=== PATIENT | male | born 1950 | race Caucasian/White ===

== ENCOUNTER 2022-01-27 09:29 | Outpatient (CLI) | payer MEDICARE, OTHER, SELFPAY ==
[2022-01-27 15:03] LABS: Albumin* 4.6 g/dL (3.3-5.0)
[2022-01-27 15:06] LABS: Alkaline Phosphatase* 73 U/L (40-150); Aspartate Amino Transferase* 26 U/L (12-35); Bilirubin Direct* 0.1 mg/dL (0.0-0.5); Bilirubin Total* 0.6 mg/dL (0.1-1.5); Total Protein* 6.9 g/dL (6.0-8.3)
[2022-01-27 15:07] LABS: Alanine Aminotransferase* 19 U/L (4-50); Lipase* 148 U/L (23-300)
== END 2022-01-27 09:30 | disposition home or self-care (01) ==
PROVIDERS: PCP Family Medicine; Visit Provider Emergency Medicine
DX: R10.9 Unspecified abdominal pain (principal); R11.0 Nausea
CPT/HCPCS: 80076; 83690; 87338

== ENCOUNTER 2022-01-28 10:00 | Outpatient (CLI) | payer MEDICARE, OTHER, SELFPAY ==
[2022-01-28 13:17] LABS: H pylori Ag Stool* Negative (Negative)
== END 2022-01-28 10:01 | disposition home or self-care (01) ==
PROVIDERS: PCP Family Medicine; Visit Provider Emergency Medicine
DX: R10.9 Unspecified abdominal pain (principal); R11.0 Nausea
CPT/HCPCS: 87338

== ENCOUNTER 2022-01-28 11:06 | Outpatient (CLI) | payer MEDICARE, OTHER, SELFPAY | END 2022-01-28 11:07 | disposition home or self-care (01) | PROVIDERS: PCP Emergency Medicine; Visit Provider Emergency Medicine | DX: R19.7 Diarrhea, unspecified (principal) | CPT/HCPCS: 87338 ==

== ENCOUNTER 2022-10-20 10:18 | Emergency (ER) | payer MEDICARE, OTHER, SELFPAY ==
[2022-10-20] VITALS (24 sets, daily range): BP systolic 94–130; BP diastolic 57–86; PULSE 69–85; RESP 16; TEMP 36.3; O2SAT 91–97; BMI 26.6
--- NOTE | 2022-10-20 10:44 | CRLHL7_ITS ---
For Patients: As a result of the 21st Century Cures Act, medical imaging exams and procedure reports are released immediately into your electronic medical record. You may view this report before your referring provider. If you have questions, please contact your health care provider. INDICATION: ABD PAIN, DIARRHEA,VOMITING TECHNIQUE: CT abdomen and pelvis with 89 cc Omnipaque 370 IV contrast. COMPARISON: August 20, 2022. FINDINGS: The liver is normal in size, shape and attenuation. Gallbladder and biliary tree are normal. The spleen, adrenal glands and pancreas are within normal limits. Redemonstrated 1.2 cm calcified splenic artery aneurysm. Multiple bilateral renal cysts and too small to characterize hypodense bilateral renal lesions. Punctate nonobstructing calculi in the lower poles of the bilateral kidneys. No hydronephrosis. Unremarkable appearing bladder. Moderate size hiatal hernia with redemonstrated but slightly worsened moderate circumferential wall thickening of the distal esophagus. No evidence of bowel obstruction. The stomach is decompressed. Extensive colonic diverticulosis without evidence of diverticulitis. Enlarged heterogenous julienne hepatis lymph node, measuring 2.9 x 2.5 cm. No significant free fluid and no free air. Mild prostatomegaly. Subpleural reticulation along the bilateral lung bases, likely reflective of fibrotic changes and similar to prior. IMPRESSION: 1. Enlarged heterogenous julienne hepatis lymph node, measuring 2.9 x 2.5 cm. Finding highly concerning for metastatic disease until proven otherwise, with unknown primary. Recommend correlation with clinical history. PET-CT may be of benefit to further evaluate. Tissue sampling could be considered if clinically feasible. 2. Moderate size hiatal hernia with redemonstrated but slightly worsened moderate circumferential wall thickening of the distal esophagus. Differential includes chronic reflux esophagitis although given prominent julienne hepatis lymph node esophageal lesion cannot be excluded. Consider endoscopy and tissue sampling if not previously performed. 3. Colonic diverticulosis without evidence of acute diverticulitis. 4. Punctate bilateral nonobstructing renal calculi. 5. Subpleural fibrotic changes in the lung bases. Findings discussed with Dr. Young German at 2 a.m. Please note that all CT scans at this facility use dose modulation, iterative reconstruction, and/or weight-based dosing when appropriate to reduce radiation dose to as low as reasonably achievable. Dictated by Lester Hawkins MD @ 10/20/2022 2:02:22 PM (Electronically Signed)
--- NOTE | 2022-10-20 10:47 | ED_ITS ---
HPI - GI Bleed General Chief complaint: GI Bleed Stated complaint: Vomiting Time Seen by Provider: 10/20/22 10:22 History of Present Illness HPI Narrative: Patient is a 72-year-old gentleman with complex gastrointestinal history including bilious vomiting and reflux. He has had multiple EGDs and has had care both [facility] and [facility]. Patient was in his usual state of health when he went to bed last night but had night of forceful vomiting. He is now throwing up but dark brown material consistent with his bili is vomiting. He has had some occasional loose stools as well but no blood in his stool no overt blood in his vomiting. Patient takes Protonix 40 mg twice daily. He does take aspirin 81 mg daily for history of coronary artery disease. He is not on any blood thinners. I states that he feels quite fatigued now but otherwise is back to his baseline. Related Data Home Medications Medication Instructions Recorded Confirmed aspirin 81 mg tablet,delayed 81 mg PO QDAY 01/27/22 10/20/22 release ([place] Low Dose Aspirin) atorvastatin 40 mg tablet 40 mg PO QDAY 01/27/22 10/20/22 fluoxetine 10 mg capsule 10 mg PO QDAY 01/27/22 10/20/22 metoprolol tartrate 25 mg tablet 25 mg PO QDAY 01/27/22 10/20/22 omeprazole 20 mg capsule,delayed 20 mg PO QDAY 01/27/22 01/27/22 release tamsulosin 0.4 mg capsule 0.4 mg PO QDAY 01/27/22 10/20/22 pantoprazole 40 mg tablet,delayed 40 mg PO BID 10/20/22 10/20/22 release Previous Rx's Medication Instructions Recorded ondansetron 4 mg disintegrating 4 mg PO Q8H PRN nausea and 10/20/22 tablet vomiting 4 days #10 tabs Allergies Allergy/AdvReac Type Severity Reaction Status Date / Time No Known Drug Allergies Allergy Verified 10/20/22 10:25 Review of Systems Status of ROS: Reports: 10 or more systems reviewed and unremarkable except as noted in History and below [facility] Medical History Elevated transaminase level ?R74.01 - Elevation of levels of liver transaminase levels (ICD-10) COVID-19 ?U07.1 - COVID-19 (ICD-10) Pulmonary emboli ?I26.99 - Other pulmonary embolism without acute cor pulmonale (ICD-10) CAD (coronary artery disease) ?I25.10 - Atherosclerotic heart disease of [place] coronary artery without angina pectoris (ICD-10) Abdominal pain ?R10.9 - Unspecified abdominal pain (ICD-10) Nausea ?R11.0 - Nausea (ICD-10) Social History Smoking Status: Former smoker Do you use any of these nicotine containing products: None Second hand tobacco smoke exposure: No How often do you have a drink containing alcohol: never How often do you have six or more drinks on one occasion: Never AUDIT-C Alcohol total score: 0 Non-prescribed substance use: denies use service: Yes Exam Narrative: Exam Narrative: EXAM GENERAL: Patient appears comfortable and well. EYES: No scleral icterus. THYROID: no thyroid nodules or thyromegaly. LYMPH: No supraclavicular or cervical lymphadenopathy. SKIN: Visible skin seen during exam normal or with benign process only. EXT: No dependent lower extremity pedal edema. HEART: Regular rate and rhythm with no murmurs, rubs, or gallops. LUNGS: Clear to auscultation bilaterally with no crackles or wheezes. ABD: Soft, non tender, non distended. PSYCH: Good eye contact, speech is not pressured. Const: Vital Signs, click to edit/add: Vital Signs - 24 hr 10/20/22 10:26 10/20/22 10:34 10/20/22 10:37 Temperature 97.3 F L Pulse Rate 79 77 Pulse Rate [Pulse Oximeter] 79 Respiratory Rate 16 Blood Pressure 107/77 Blood Pressure [Ri ght Upper Arm] 107/77 Pulse Oximetry 95 95 96 Oxygen Delivery Me thod Room Air 10/20/22 10:42 10/20/22 10:45 10/20/22 11:00 Temperature Pulse Rate 79 80 85 Pulse Rate [Pulse Oximeter] Respiratory Rate Blood Pressure 99/72 Blood Pressure [Ri ght Upper Arm] Pulse Oximetry 97 95 91 Oxygen Delivery Me thod 10/20/22 11:02 10/20/22 11:15 10/20/22 11:21 Temperature Pulse Rate 77 75 74 Pulse Rate [Pulse Oximeter] Respiratory Rate Blood Pressure 112/86 127/69 Blood Pressure [Ri ght Upper Arm] Pulse Oximetry 97 94 93 Oxygen Delivery Me thod 10/20/22 11:30 10/20/22 11:42 10/20/22 11:45 Temperature Pulse Rate 72 71 70 Pulse Rate [Pulse Oximeter] Respiratory Rate Blood Pressure 124/67 Blood Pressure [Ri ght Upper Arm] Pulse Oximetry 93 94 94 Oxygen Delivery Me thod 10/20/22 12:00 10/20/22 12:02 10/20/22 12:26 Temperature Pulse Rate 83 69 81 Pulse Rate [Pulse Oximeter] Respiratory Rate Blood Pressure 119/74 Blood Pressure [Ri ght Upper Arm] Pulse Oximetry 92 95 96 Oxygen Delivery Me thod 10/20/22 12:30 10/20/22 12:42 10/20/22 12:45 Temperature Pulse Rate 79 77 76 Pulse Rate [Pulse Oximeter] Respiratory Rate Blood Pressure 112/67 Blood Pressure [Ri ght Upper Arm] Pulse Oximetry 97 93 93 Oxygen Delivery Me thod 10/20/22 13:00 10/20/22 13:02 10/20/22 13:15 Temperature Pulse Rate 73 72 71 Pulse Rate [Pulse Oximeter] Respiratory Rate Blood Pressure 106/63 Blood Pressure [Ri ght Upper Arm] Pulse Oximetry 94 94 95 Oxygen Delivery Me thod 10/20/22 13:22 10/20/22 13:30 10/20/22 13:42 Temperature Pulse Rate 69 71 74 Pulse Rate [Pulse Oximeter] Respiratory Rate Blood Pressure 94/57 L 130/69 Blood Pressure [Ri ght Upper Arm] Pulse Oximetry 92 95 95 Oxygen Delivery Me thod Course Course Hospital Course: CBC comprehensive metabolic panel PT PTT INR stool for occult blood ordered. 1 L saline bolus and 4 mg of IV Zofran given. CT of the abdomen pelvis ordered. Vital Signs Vital signs: Initial Vital Signs Temperature 97.3 F L 10/20/22 10:26 Temperature Source Temporal Artery Scan 10/20/22 10:26 Pulse Rate 79 10/20/22 10:26 Pulse Rhythm Regular 10/20/22 10:26 Pulse Strength 3+ Normal 10/20/22 10:26 Respiratory Rate 16 10/20/22 10:26 Blood Pressure 107/77 10/20/22 10:26 Blood Pressure Mean 87 10/20/22 10:26 Blood Pressure Position Sitting 10/20/22 10:26 Pulse Oximetry 95 10/20/22 10:26 Oxygen Delivery Method Room Air 10/20/22 10:26 Vital Signs Temperature 97.3 F L 10/20/22 10:26 Pulse Rate 79 10/20/22 10:26 Respiratory Rate 16 10/20/22 10:26 Blood Pressure 107/77 10/20/22 10:26 Pulse Oximetry 95 10/20/22 10:26 Oxygen Delivery Method Room Air 10/20/22 10:26 Temperature 97.3 F L 10/20/22 10:26 Pulse Rate 74 10/20/22 13:42 Respiratory Rate 16 10/20/22 10:26 Blood Pressure 130/69 10/20/22 13:42 Pulse Oximetry 95 10/20/22 13:42 Oxygen Delivery Method Room Air 10/20/22 10:26 MDM - GI Bleed MDM Narrative Medical decision making narrative: Patient is a 72-year-old gentleman with a somewhat complex gastrointestinal history who comes in after vomiting what was either blood or bile. He had no further nausea vomiting after arrival. He was treated with normal saline as well as IV Zofran. Hemoglobin is reassuring. He does have a trace amount of blood in his stool. Coags are reasonable as are his electrolytes although he does have elevation in his BUN in relation to his creatinine. CT of the abdomen pelvis shows what appears to be a pathological lymph node near the liver. I did discuss this with the radiologist. The case was reviewed with patient to remain stable during his time in the emergency room. He would like to go home with oral Zofran and follow up with his primary physician. I did recommend either a PET scan or biopsy of his lymph node and then a search to make sure that there is not an underlying malignancy. Differential Diagnosis Differential diagnosis: Likely hemorrhoids, infectious diarrhea, esophageal varices, gastritis, Bridget-Middleton syndrome, Upper gastrointestinal hemorrhage, Lower gastrointestinal hemorrhage, hematochezia, melena and anal fissure Lab Data Labs: Lab Results 10/20/22 10/20/22 Range/Units 10:50 11:00 WBC 13.36 H (4.50-11.00) K/uL RBC 4.51 (4.30-5.90) m/uL Hgb 14.5 (13.5-17.5) gm/dL Hct 42.3 (37.0-53.0) % MCV 94 (80-100) fL MCH 32 (26-34) pg MCHC 34 (32-36) gm/dL RDW Coeff of [place] 12.4 (11.5-15.5) % Plt Count 209 (140-440) K/uL Neut % (Auto) 88.0 H (42.0-72.0) % Lymph % (Auto) 5.5 L (20-44) % Perry % (Auto) 6.4 (0.0-11.0) % Eos % (Auto) 0.0 (0.0-7.0) % Baso % (Auto) 0.0 (0.0-3.0) % Neut # (Auto) 11.80 H (1.7-7.0) K/uL Lymph # (Auto) 0.70 L (0.90-2.90) K/uL Perry # (Auto) 0.90 (0.00-0.90) K/UL Eos # (Auto) 0.00 (0.00-0.50) K/uL Baso # (Auto) 0.00 (0.00-0.30) K/uL Abs Immat Gran (auto) 0.00 (0.00-0.30) K/uL Imm/Tot Granulo (auto) 0.1 % INR 1.06 (0.91-1.10) APTT 27 (23-33) Seconds Sodium 137 (135-149) mmol/L Potassium 3.6 (3.6-5.1) mmol/L Chloride 99 (96-114) mmol/L Carbon Dioxide 26 (20-32) mmol/L BUN 32 H (7-30) mg/dL Creatinine 0.9 (0.5-1.5) mg/dL Estimated Creat Clear 64.81 Estimated GFR 90 ml/min Glucose 157 H (60-115) mg/dL Calcium 8.7 (8.4-10.6) mg/dL Total Bilirubin 1.1 (0.1-1.5) mg/dL AST 29 (12-35) U/L ALT 26 (4-50) U/L Alkaline Phosphatase 54 (40-150) U/L Total Protein 7.5 (6.0-8.3) g/dL Albumin 4.6 (3.3-5.0) g/dL Stool Occult Blood Positive (Negative) Discharge Plan Discharge Clinical Impression: Vomiting Patient Disposition: Home, Self-Care Condition: Stable Instructions: Acute Nausea and Vomiting (ED) Additional Instructions: Zofran as directed Advanced diet as tolerated Activity as tolerated Follow-up with Dr. Arnett to discuss enlarged lymph node near your liver. Would consider biopsy versus PET scan. Activity Level: No Restrictions Discharge Diet: Regular Prescriptions: New ondansetron 4 mg tablet,disintegrating 4 mg PO Q8H PRN (Reason: nausea and vomiting) 4 Days Qty: 10 0RF No Action omeprazole 20 mg capsule,delayed release(DR/EC) 20 mg PO QDAY metoprolol tartrate 25 mg tablet 25 mg PO QDAY tamsulosin 0.4 mg capsule 0.4 mg PO QDAY fluoxetine 10 mg capsule 10 mg PO QDAY atorvastatin 40 mg tablet 40 mg PO QDAY aspirin [[place] Low Dose Aspirin] 81 mg tablet,delayed release (DR/EC) 81 mg PO QDAY pantoprazole 40 mg tablet,delayed release (DR/EC) 40 mg PO BID Follow Up/Referrals: Fernando Arnett MD [Primary Care Provider] - Stand Alone Forms: [employer] Info Instructions
[2022-10-20] MEDS: 0.9 % SODIUM CHLORIDE 1000 ml 1,000 ML IV (11:00)
[2022-10-20] MEDS: ONDANSETRON 2 MG/ML inj 4 MG IVP (11:00)
[2022-10-20 11:19] LABS: Hematocrit 42.3 % (37.0-53.0); Hemoglobin* 14.5 gm/dL (13.5-17.5); Immature Granulocytes Pct Auto 0.1 %; Lymphocytes Percent Auto 5.5 % (20-44); Mean Corpuscular HGB Conc 34 gm/dL (32-36); Mean Corpuscular Hemoglobin 32 pg (26-34); Mean Corpuscular Volume 94 fL (80-100); Monocytes Percent Auto 6.4 % (0.0-11.0); Platelet Count* 209 K/uL (140-440); RDW Coefficient of Variation % 12.4 % (11.5-15.5); Red Blood Count 4.51 m/uL (4.30-5.90); White Blood Count* 13.36 K/uL (4.50-11.00)
[2022-10-20 11:26] LABS: Slide Review Reflex No
[2022-10-20 11:39] LABS: Albumin* 4.6 g/dL (3.3-5.0); Chloride* 99 mmol/L (96-114)
[2022-10-20 11:40] LABS: Potassium* 3.6 mmol/L (3.6-5.1); Sodium* 137 mmol/L (135-149)
[2022-10-20 11:42] LABS: Aspartate Amino Transferase* 29 U/L (12-35); Bilirubin Total* 1.1 mg/dL (0.1-1.5); Carbon Dioxide* 26 mmol/L (20-32); Creatinine* 0.9 mg/dL (0.5-1.5); Est. Creatinine Clearance* 64.81; Estimated Glomerular Filt Rate 90 ml/min
[2022-10-20 11:43] LABS: Alanine Aminotransferase* 26 U/L (4-50); Alkaline Phosphatase* 54 U/L (40-150); Blood Urea Nitrogen* 32 mg/dL (7-30); Calcium* 8.7 mg/dL (8.4-10.6); Glucose* 157 mg/dL (60-115); INR 1.06 (0.91-1.10); Prothrombin Time 14.4 Seconds; Total Protein* 7.5 g/dL (6.0-8.3)
[2022-10-20 11:44] LABS: Partial Thromboplastin Time* 27 Seconds (23-33)
[2022-10-20 12:28] LABS: Fecal Occult Blood* Positive (Negative)
== END 2022-10-20 14:42 | disposition home or self-care (01) ==
PROVIDERS: Emergency Provider Internal Medicine; PCP Family Medicine
DX: R11.10 Vomiting, unspecified (principal)
CPT/HCPCS: 36415; 74177; 80053; 82270; 85025; 85610; 85730; 96374; 99283; 99284; J2405; J7030; Q9967

== ENCOUNTER 2022-10-27 13:18 | Outpatient (CLI) | payer MEDICARE, OTHER, SELFPAY ==
--- NOTE | 2022-10-27 14:00 | CRLHL7_ITS ---
For Patients: As a result of the 21st Century Cures Act, medical imaging exams and procedure reports are released immediately into your electronic medical record. You may view this report before your referring provider. If you have questions, please contact your health care provider. EXAM: PET-CT SKULL BASE TO THIGH CLINICAL INFORMATION: 72-yo male with and enlarged julienne hepatis lymph node. Patient is referred for further characterization. TECHNIQUE: Radiopharmaceutical: 12.69 mCi of 18F-FDG Intravenous injection site: LAC Uptake time: 56 minutes Blood glucose level at the time of injection: 123 mg/dL Field of view: Skull base to mid-thighs CT protocol: The low-dose, free-breathing, noncontrast CT performed as part of this study is designed for the purposes of attenuation correction and lesion localization, and it is neither sufficient, nor it should be substituted for diagnostic purposes. COMPARISON: CT abdomen pelvis 10/20/2022 and 08/20/2022 FINDINGS: Physiologic background liver standardized uptake value (SUV mean and SUV max) reported for comparison between PET studies: 2.8 and 4.1. Visualized head and neck: Physiologic uptake in the visualized portions of the brain, extraocular muscles, and salivary glands. Head and neck lymph nodes: No abnormal uptake. Lungs: No abnormal left lung uptake. Anterior right middle lobe noncalcified nodule demonstrates low-level uptake, 0.6 cm, SUV max 0.9 (fused image 100). No hypermetabolic left lung nodules. scattered areas of parenchymal subpleural scarring/fibrosis in each lung. Dependent atelectasis. No consolidation. Thoracic lymph nodes: No enlarged hypermetabolic mediastinal or axillary lymph nodes. Nonenlarged paratracheal lymph nodes with mild uptake are nonspecific. For example: Upper right paratracheal lymph node, 0.6 cm short axis, SUV max 2.1. Other chest findings: Prior median sternotomy. Diffuse [place] coronary vascular calcifications. -Small sliding type hiatal hernia. Mild circumferential wall thickening with asymmetric uptake extends from the carinal level to the distal esophagus with intense uptake, SUV max 11.0 (fused image 121). Indeterminate, possibly an inflammatory process to include erosive esophagitis or long segment Oglesby`s. Direct visualization recommended to exclude a primary esophageal malignancy. Hepatobiliary: Background heterogeneous liver activity with no focal abnormal uptake. Spleen: No abnormal uptake. The spleen measures 8.6 x 4.4 x 13.2 cm. Pancreas: No abnormal uptake. Adrenals: No abnormal uptake. Kidneys and bladder: No abnormal uptake. Tiny nonobstructing bilateral renal calcifications. Rounded bilateral low-density renal lesions without suspicious uptake are considered nonspecific. Larger lesions are likely cysts. Smaller lesions difficult to fully characterize. Limited bladder distention with generalized wall thickening Bowel and peritoneum: Gastric lumen is relatively decompressed. No outlet obstruction. No suspicious small or large bowel uptake. Unremarkable appendix. Diffuse colonic diverticulosis without inflammatory change. Pelvic organs: Similar mild prostate enlargement. No abnormal uptake. Abdominopelvic lymph nodes: No hypermetabolic lower retroperitoneal, pelvic or inguinal lymph nodes. Enlarged right upper quadrant/julienne hepatis lymph node is moderately avid, 1.9 cm short axis, SUV max 6.7 (fused image 150). Small gastrohepatic lymph node, 0.5 cm short axis, SUV max 2.2 (fused image 149). Less avid small periportal and pericaval lymph nodes are nonspecific. Musculoskeletal, soft tissues, skin: No suspicious tracer avid osseous lesions or abnormal uptake. Degenerative type uptake within the right shoulder and spine. Other: Scattered aortoiliac atherosclerotic vascular calcifications. Prior right inguinal herniorrhaphy. IMPRESSION: 1. Mild mid and distal esophageal wall thickening with asymmetric intense uptake is considered indeterminate. Direct visualization recommended to exclude a primary esophageal malignancy. 2. Enlarged julienne hepatis lymph node with moderate uptake is suspicious. Smaller less avid gastrohepatic, periportal and precaval lymph nodes are nonspecific. No hypermetabolic lower retroperitoneal or pelvic lymphadenopathy. 3. Borderline splenomegaly with no focal uptake. 4. Small noncalcified right middle lobe nodule with low level uptake is indeterminate. Recommend comparison with prior cross-sectional imaging of the chest and/or short-term interval follow-up imaging per Fleischner society guidelines. 5. No distant sites of tracer avid in the neck, solid organs of the upper abdomen or osseous structures. Dictated by Dillon Chase MD @ 11/03/2022 4:50:26 PM (Electronically Signed)
== END 2022-10-27 13:19 | disposition home or self-care (01) ==
LOC: RAD 13:19
PROVIDERS: PCP Family Medicine; Visit Provider Family Medicine
DX: R93.5 Abnormal findings on diagnostic imaging of other abdominal regions, including retroperitoneum (principal); R16.1 Splenomegaly, not elsewhere classified; R91.1 Solitary pulmonary nodule
CPT/HCPCS: 78815; A9552